=== PATIENT | male | born 1970 | race Caucasian/White ===

== ENCOUNTER 2016-08-31 10:56 | Emergency (ER) | payer MEDICARE ==
[2016-08-31 11:46] LABS: INR 2.07 (0.9-1.2); PROTHROMBIN TIME 22.7 SECONDS (11.7-14.0); PTT 51.2 SECONDS (23.2-31.4)
== END 2016-08-31 12:31 | disposition home or self-care (01) ==
LOC: FER 10:56
PROVIDERS: Internal Medicine
DX: J20.9 Acute bronchitis, unspecified (principal); I10 Essential (primary) hypertension; F17.200 Nicotine dependence, unspecified, uncomplicated; Z79.01 Long term (current) use of anticoagulants; Z79.899 Other long term (current) drug therapy; Z95.2 Presence of prosthetic heart valve
CPT/HCPCS: 36415; 71020; 84484; 85610; 85730; 93005